=== PATIENT | male | born 1970 | race Two or more races ===

== ENCOUNTER 2016-10-01 22:14 | Emergency (ER) | payer MEDICARE, MEDICAID ==
[~2016-10-01] VITALS: Ht 182.9 cm; Wt 86.2 kg
[2016-10-01] MEDS ORDERED: ONDANSETRON HCL 4 MG/2 ML VIAL IV ONE (22:30)
[2016-10-01] MEDS ORDERED: MORPHINE SULFATE 4 MG/ML SYRG IV ONE (22:30)
[2016-10-02] MEDS ORDERED: MORPHINE SULFATE 4 MG/ML SYRG IV ONE (00:45)
[2016-10-02] MEDS ORDERED: CYCLOBENZAPRINE HCL 10 MG TAB PO ONE (00:45)
[2016-10-02 01:59] VITALS: BP 115/62
[2016-10-02] MEDS ORDERED: HYDROcodone-ACET 10/325MG TAB PO ONE (02:00)
== END 2016-10-02 02:37 | disposition home or self-care (01) ==
LOC: EDBD 22:14 → ER 22:14
DX: M25.552 Pain in left hip (principal); X50.1XXA Overexertion from prolonged static or awkward postures, initial encounter; Y93.89 Activity, other specified; Y92.89 Other specified places as the place of occurrence of the external cause; Y99.8 Other external cause status; Z88.6 Allergy status to analgesic agent
CPT/HCPCS: 73502; 73552; 93971; 96374; 96375; 96376; 99284; J2270; J2405